=== PATIENT | female | born 1935 | race Caucasian/White ===

== ENCOUNTER 2017-03-10 10:23 | Day surgery (SDC) | payer MEDICARE ==
[2017-03-10] VITALS (8 sets, daily range): BP systolic 115–141; BP diastolic 39–87; PULSE 81–99; RESP 15–21; O2SAT 96–100
[~2017-03-10] VITALS: Ht 152.4 cm; Wt 72.1 kg
[2017-03-10] MEDS: Lactated Ringer's 1,000 ML IV SCH ×3 (05:00→13:53)
[2017-03-10] MEDS: CeFAZolin Inj 2 GM in IV Premix 1 EACH IV SCH ×2 (06:00→13:58)
[2017-03-10] MEDS: Phenazopyridine 97.5 mg Tablet PO SCH ×2 (06:00→13:07)
[~2017-03-10 10:23] MED LIST: AMLO5TAB2 PO; BETA15OI2 TOP; CLOT15CR5 TOPICAL; FLUC150T3 PO; FLUT9.9S NS; FURO-129 PO; LISI40TA PO; POTA10TA38 PO; PREC VAGINAL
[2017-03-10] MEDS ORDERED: Dexamethasone 4 mg/mL Inj ONE (10:24)
[2017-03-10] MEDS ORDERED: fentaNYL-PF 50 mCg/mL 2 mL Inj ONE (10:24)
[2017-03-10] MEDS ORDERED: Propofol 10,000 mCg/mL 20 mL Inj ONE (10:24)
[2017-03-10] MEDS ORDERED: Rocuronium 10 mg/mL 5 mL Inj ONE (10:24)
[2017-03-10] MEDS ORDERED: Ondansetron 2 mg/mL 2 mL Inj ONE (10:24)
--- NOTE | 2017-03-10 13:30 | PCM.HPANE ---
Patient Data Date of Service: March 10, 2017 Surgeon Admitting Provider: Attending Provider:Bismark Cutler MD Primary Care Physician:Najma Spaulding Other Provider:Sandra Jimenez Anesthesia Reason for Visit Cystocele, Rectocele, Vault Prolapse, Erosion Of I Ht/WT & BMI Height (Feet): 5 Height (Inches): 0.00 Weight (Kilograms): 67.300 Body Mass Index 29.00 Allergies Coded Allergies: hydrocodone (Verified Adverse Reaction, Severe, "violently ill" ( DOES TOLERATE ACETAMINOPHEN), 03/05/17) Past Anesthesia History Anesthesia History: Denies:: Anesthesia Reactions, Malignant Hyperthermia Diabetes History Hx Diabetes?: No MRSA MRSA: No Medications Hypertension Medication: Yes (LASIX,LISINOPRIL,AMLODIPINE) Home Meds Incl Beta Iain: No Reported Medications Estrogens Conjugated (Premarin)1 Gm Vagcream0.5 Gm VAGINAL WEEKLY #1 TUBE Ref 0 03/05/17 Potassium Chloride 10 Meq Tab.er.prt10 Meq PO DAILY 30 Days Ref 0 TAKE WITH FOOD 03/05/17 Lisinopril 40 Mg Gqqitu52 Mg PO DAILY 30 Days Ref 0 03/05/17 Fluticasone Propionate (Flonase Allergy Relief)50 Mcg/Actuation Alvord.susp9.9 Ml NS DAILY 03/05/17 Amlodipine 5 Mg Tablet5 Mg PO EVERY OTHER DAY Ref 0 03/05/17 Discontinued Reported Medications Furosemide (Lasix)20 Mg Uatnmq47 Mg PO DAILY 30 Days Ref 0 03/05/17 Clotrimazole/Betamethasone Dip (Lotrisone)15 Gm Cream..g.1 Applic TOPICAL DIRECTED PRN SKIN 03/05/17 Fluconazole 150 Mg [id number] Mg PO ONCE #1 TABLET Ref 0 03/05/17 Betamethasone Valerate (Betamethasone Valerate 0.1% Ointment)15 Gm Oint...g.1 Appl TOP BID #1 TUBE Ref 0 03/05/17 History History of ENT Problems?: No HEENT History: Denies:: Cataracts (HX OF RETINAL DETACHMENT) Denture Type: None Teeth Condition: No Teeth Other HEENT Pertinent History: S/P TONSILLECTOMY, DENTAL EXTRACTIONS Hx of Heart Problems?: Yes Cardiovascular History: Positive for:: Edema (R/T AMLODIPINE) Hypertension (HYPERLIPIDEMIA) Denies:: Heart Murmur Hx of Respiratory Problem?: Yes Respiratory History: Denies:: Use of C-PAP Machine (SUSPECT TALISHA+ (ACCORDING TO PT) NO CPAP) Hx Neurologic Problems?: Yes Hx of GI Problems?: Yes Other GI Pertinent History: C/OF DIARRHEA Hx of Problems?: Yes Genitourinary History: Positive for:: Urinary Tract Infection (HAS SL HEMATURIA ?UTI C&S PENDING) Female Hx: Denies:: Currently Skin History: Denies:: History Skin Disorders? Pressure Ulcers Hx Musculoskeletal Problems?: No Hx of Psycho/Social Problems?: No Hx Surgeries?: Yes (TONSILLECTOMY,TEETH EXTRACTED,VAGINAL SUSPENSION) Hx Any Other Health Problems?: Yes Other History: Positive for:: Hospitalization Denies:: Cancer Endocrine Disease Thyroid Disease History Blood Transfusions: Positive for:: Accept Blood Products? Blood Transfusions Denies:: Blood Transfuse Reaction Hx Diabetes: No Hx Alcohol Use: NoHx Substance Use: NoHave You Smoked inLast 12 mo: No Stop/Bang S-Snoring: Do You Snore Loudly: No T-Tired: feel tired, fatigued: Yes O-Obsered: Observed not breath: No P-Blood Pressure: treated: Yes B- Body Mass Index > 35 kg/m2: No N- Neck Large Circumference: No G- Gender Male: No TALISHA Risk Assessment: Low Risk, <3 Yes Risk Assessment Category Category 1A: Patient has history of documented sleep apnea, and HAS NOT received any narcotic, sedative or anesthesia administration during this stay. Category 1B: Patient has history of documented sleep apnea, and HAS received any narcotic , sedative or anesthesia administration during this stay Category 2: Patient has SUSPECTED Obstructive Sleep Apnea, and HAS received any narcotic , sedative or anesthesia administration during this stay. Category 3: Patient has SUSPECTED Obstructive Sleep Apnea and HAS NOT received narcotic, sedative or anesthesia administration during this stay. Category 4: Outpatient in Procedural Areas with known sleep apnea or who screen positive for High Risk via the STOP/BANG questionnaire. Exam Exam Vital Signs Vital Signs Date Time Temp Pulse Resp B/P Pulse Ox O2 Delivery O2 Flow Rate FiO2 03/10/17 10:49 36.1 99 18 141/70 96 Room Air General Appearance: Alert, Oriented X3, Cooperative, No Acute Distress HEENT/AIRWAY: MP 2 Lungs: Clear to Auscultation, Normal Air Movement Heart: Exam Unremarkable, Regular Rate/Rhythm, No Murmurs/Rubs/Gallops Meds/Labs/Diagnostics Admission Meds Current Medications Phenazopyridine HCl 2 tab 2 tab PREOP PO Last administered on 03/10/17 13:07; Start 03/10/17 at 06:00; Stop 03/10/17 at 17:00 Lactated Ringer's (Lr) 1,000 ml @ 120 mls/hr Q8H20M IV Last administered on 11:10; Start 03/10/17 at 05:00; Stop 03/10/17 at 13:19; Status DC Plan Impression Patient chart reviewed, patient interviewed and anesthestic plan with risks, benefits, and alternatives discussed, and informed consent obtained. NPO per Anesth. Guidelines: Yes ASA Physical Status: ASA2 Mod Systemic Disease Anesthetic Plan: GA Bene/Risks/Altern/Consents: Yes HP Complete Prior to Induction: Yes Yemi Bruce MD March 10, 2017 13:30
[2017-03-10] MEDS ORDERED: Lidocaine 1%-Epi 1:100,000 20 mL Inj INFILTRATE ONE (14:30)
[2017-03-10] MEDS ORDERED: hydrALAZINE 20 mg/mL Inj IVPUSH PRN (14:40)
[2017-03-10] MEDS ORDERED: MetoCLOpramide 5 mg/mL 2 mL Inj IVPUSH PRN ×2 (14:40→17:40)
[2017-03-10] MEDS ORDERED: EPHEDrine Sulfate 50 mg/mL Inj IVPUSH PRN (14:40)
[2017-03-10] MEDS ORDERED: HYDROmorphone 1 mg/mL Inj IVPUSH PRN (14:40)
[2017-03-10] MEDS ORDERED: Phenylephrine 10,000 mCg/mL Inj IVPUSH PRN (14:40)
[2017-03-10] MEDS ORDERED: Lactated Ringer's 1,000 ML IV SCH (14:40)
[2017-03-10] MEDS ORDERED: Lactated Ringer's 500 ML IV PRN (14:40)
[2017-03-10] MEDS ORDERED: fentaNYL-PF 50 mCg/mL 2 mL Inj IVPUSH PRN (14:40)
[2017-03-10] MEDS ORDERED: Atropine 0.4 mg/mL Inj IVPUSH PRN (14:40)
[2017-03-10] MEDS ORDERED: Ondansetron 2 mg/mL 2 mL Inj IVPUSH PRN ×2 (14:40→17:40)
[2017-03-10] MEDS ORDERED: Labetalol 5 mg/mL 4 mL Inj IV PRN (14:40)
[2017-03-10] MEDS ORDERED: Gentamicin 40 mg/mL 2 mL Inj IRRIGATION ONE (15:00)
--- NOTE | 2017-03-10 17:32 | PCM.ANEP1 ---
Post Anesthesia PACU Phase 1 Assessment Date of Service: March 10, 2017 Vital Signs 36.1 123/56 87 13 98% FM Anesthetic Administered: GA Level of Alertness: Sleeping, hard to arouse WILLSON's with Equal Strength: Yes Pain: No Nausea or Vomiting: No CV Function and Hydration: Yes Airway Device: Oxygen Delivery: Simple Mask Lungs: Clear to Auscultation, Normal Air Movement PACU Phase 2 Assessment Complications: No Follow up Care: No Patient Instructions Provided: Yes Yemi Bruce MD March 10, 2017 17:32
[2017-03-10] MEDS ORDERED: oxyCODONE-Acetamin 5-325 mg Tablet PO PRN (17:40)
[2017-03-10] MEDS ORDERED: diphenhydrAMINE 25 mg Capsule PO PRN (17:40)
[2017-03-10] MEDS ORDERED: Acetaminophen IV 1,000 MG in IV Premix 1 EACH IV PRN (17:40)
[2017-03-10] MEDS ORDERED: Alum-Mag Hydrox-Simeth 30 mL Suspension PO PRN (17:40)
--- NOTE | 2017-03-10 18:45 | NUR ---
Postop Pt comes from PACU. slid over to bed from [facility]. Alert and oriented to self at this time. Vidal patent and draining to gravity glenn urine. 2-3L NC. IV Right FA in use.. Pt c/o pain at this time but unable to rate with number. Care continues. Report given to oncoming nurse; oncoming nurse aware of pain.
[2017-03-10] MEDS: 0.9% Sodium Chloride 1,000 ML IV SCH (19:39)
[2017-03-10] MEDS ORDERED: Fluticasone 0.05% 15 Spray/2 Gm 16 Gm Nasal Spray NASAL PRN (20:30)
[2017-03-10] MEDS: Senna-Docusate 8.6-50 mg Tablet PO SCH (20:30)
[2017-03-10] MEDS: Ketorolac 15 mg/mL Inj IVPUSH PRN (21:25)
[2017-03-10 21:47] LABS: APPEARANCE,URINE CLEAR (CLEAR,HAZY); COLOR,URINE YELLOW (YELLOW); OCCULT BLOOD,URINE TRACE (NEGATIVE)
[2017-03-10 21:48] LABS: UROBILINOGEN,URINE NORMAL (NORMAL)
--- NOTE | 2017-03-10 23:50 | PCM.SURGOP ---
Surgical Operative Report Date of Service: March 10, 2017 Pre Operative Diagnosis 1. POPQ stage 2 anterior, posterior and apical vaginal prolapse 2. Erosion of vaginal foreign body 3. Vulvar leukoplakia Post Operative Diagnosis 1. POPQ stage 2 cystocele/vaginal vault prolapse/enterocele 2. POPQ stage 1-2 rectocele (completely reduced after vault suspension) 3. 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 anterior repair with Xenform biologic graft augmentation, 2. high uterosacral ligament vaginal vault suspension, cystoscopy and enterocele repair\ 3. excision of eroded vaginal foreign body 4. vulvar/labial and perineal biopsy of vulvar leukoplakia. Surgeon and Aircraft Layout Worker: Surgeon: Bismark Cutler MD Assistants: Glen Resendez MD Indication for Procedure Her assessment to date includes: 1. Cystocele, midline N81.11 (618.01): 2. Rectocele N81.6 (618.04): 3. 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 Erosion of implanted vaginal foreign body 5. Vulvar leukoplakia The patient has had a history of 1) 05/06/2006 A and P repair with SPARC sling and correction of enterocele for complete vaginal prolapse (Dr. Obed Castle and Dr. Aaron Cohn) and 2) 1996 Hysterectomy for fibroids. She complains of recurrent prolapse. The patient is not interested in a pessary. The patient is a candidate for surgical prolapse management in the form of anterior and posterior repair with possible biologic graft augmentation, high uterosacral ligament vaginal vault suspension and enterocele repair. We can excise the eroded vaginal foreign body. In addition, we could perform a vulvar biopsy of the irritated vulvar leukoplakia. She has obtained medical clearance prior to surgery (Dr. Najma Spaulding is her GP). The patient signed the consent form. She agreed with the risks, benefits, and alternatives to surgery. The risks included but not limited to recurrence or persistence of prolapse, recurrence of persistence of incontinence, development of voiding dysfunction, development of urinary urgency, urgency incontinence, frequency, and need for intermittent self-catheterization or prolonged indwelling catheterization, injury to other organs including bladder, bowel, nerves or blood vessels. Need for blood transfusion, need for temporary colostomy or urinary stenting. Development of vaginal scarring, dyspareunia, defecatory dysfunction, recurring pain, hematoma formation, urinary tract infection, cellulitis, necrotizing fascitis, and medical risks including myocardial infarction, stroke or VTE. She also understood the FDA warnings associated with the use of vaginal graft (dysparunia, vaginal erosion, erosion into bowel/bladder/urethra, requiring further surgery to correct these complications). The patient understood the risks and benefits and consented to surgery.. Findings: see dictation Procedure Details SURGICAL TECHNIQUE: The patient was brought to the operating room and was placed under general anesthesia. She was prepped and draped in the normal fashion for vaginal surgery with the legs in Yellofin stirrups. Also, her hips were allowed to deflex periodically during the case to avoid any pressure on the nerves and lower limb joints. She was given a dose of IV Keflex. She received 200 mg oral pyridium 30 min prior to surgery. 1. Biopsy of vulva/labia and perineum. Areas of leukoplakia were noted along the perineum (inferior to the posterior fourchette) and adjacent to the labia minor. Two areas with the most intense leukoplakia were noted and chosen to be biopsied: the perineum at the 6 oclock position and the skin at and beside the right labia minora at the 11 oclock position. The areas were infiltrated with 0.5% lidocaine with epinephrine. A 6 mm circular biopsy knife was used to biopsy the two areas, which were sent to pathology. Hemostasis was achieved using cautery. The skin edges were approximated using Dermabond topical skin adhesive. 2. Excision of vaginal foreign body. A foreign body was noted to be eroding through the vagina along the area of the bladder neck. A small incision was made with a scalpel to explore the area. This allowed for exposure of several strands of semi-absorbable suture which were excised at its base. The largest fragment was sent to pathology. 3. Anterior colporrhaphy with Xenform graft augmentation: Lidocaine 0.5% with 1 /[id number] epinephrine was infiltrated along the anterior vaginal wall mucosa. A midline vertical incision was made through the anterior vaginal wall. The vaginal wall was dissected off the underlying pubocervical and pubovesical fascia. The dissection was extended laterally beyond the ischiopubic rami. It was noted that the pubocervical and pubovesical fascial tissues were deficient. 4. High uterosacral ligament vaginal vault suspension, cystoscopy and enterocele repair: The rest of the anterior repair would be performed later. We directed attention to the apex where we suspected an enterocele was present. By using a gloved finger in the rectum, the bladder was dissected off the rectum and the retroperitoneal space was entered. However, there was no clear entry noted into the enterocele sac. Therefore, we decided to proceed with a retroperitoneal high uterosacral ligament vaginal vault suspension. The bladder and rectum/bowels were retracted with Brisky and right-angle retractors and a pair of Allis clamps were placed along the distal uterosacral ligaments to allow for digital palpation/identification. A pair of 0 Vicryl sutures were passed retroperitoneally around the uterosacral ligaments of the level of the ischial spines bilaterally, totalling 4. Cystoscopy was performed while the vault sutures were placed under tension. Multiple incidental bladder diverticulae and trabeculations were noted. Brisk spillage of pyridium-stained urine was noted at the left, but not the right ureteric orifice. Therefore the right uterosacral ligament sutures were excised. This resulted in creating a small window through the peritoneum, which would then allow us to perform an interperitoneal vault suspension. The left vault suspension sutures were removed as they were noted to be placed too superficially into the tissues. A peritoneal window was enlargened with sharp dissection. Five mini laparotomy sponges were packed in the pelvis to retract the bowel upwards. A pair of Allis clamps were placed along the intraperitoneal portions of the vagina at the 5 and 7 o'clock positions. Tension along these Allis clamps allowed for identification of the uterosacral ligaments bilaterally. Also the ureters were palpated carefully to identify them so they can be avoided. A pair of 0 Vicryl sutures were passed intraperitoneally around the uterosacral ligaments of the level of the ischial spines bilaterally, totalling 4. Cystoscopy was performed while the vault sutures were placed under tension. Brisk spillage of pyridium-stained urine was noted at the ureteric orifices bilaterally. The moderate enterocele was obliterated using two 3-0 prolene sutures in a transverse fashion along the posterior cul-de-sac. A gloved finger in the rectum was used to avoid penetrating the rectal mucosa. The remainder of the anterior repair was then completed as follows: The cystocele was plicated in 2 layers, the first layer with 2-0 Vicryl suture in interrupted fashion, the second layer with 2-0 Tycron suture in an interrupted fashion. A trapezoidal piece of Xenform graft was then incorporated atop the plicated area far laterally. The graft was secured far laterally into the obturator internus membrane. At the level of the bladder neck, an upside down triangular piece of graft was excised so that there was no excessive-support along the level of the bladder neck. Apically, the graft was passed through the proximal uterosacral ligament sutures. A mild amount of anterior vaginal mucosa was required to be excised. The high uterosacral ligament vault suspension sutures were passed through the planned apex of the vagina. The vagina was then reapproximated using 3-0 Vicryl suture in a running locked fashion. The high uterosacral ligament vaginal vault suspension sutures were tied and this elevated the apex of the vagina high up into the hollow of the sacrum. An EUA revealed that the POPQ stage 1-2 posterior vaginal prolapse/rectocele was completely reduced after vault suspension; therefore a posterior repair was not required. The estimated blood loss was approximately 100 mL. 800 mL of IV Lactated Ringer 's was given. All sponges and instruments were accounted for. The patient was taken to the recovery room in stable condition. Complications There were no periprocedural complications identified. Surgical Specimen Removed: Yes Specimen sent to Pathology: Yes Surgical Specimen description: vulvar/skin biopsies x 2 eroded vaginal foreign body/stitch Anesthetic Plan: GA Grafts, Implants: Implants-See Implant Record Output, Estimated Blood Loss: 100 (ml EBL) Blood Administration during scott: No Drains: None Catheters: Urethral 2 Way Vidal Post Operative Plan overnight stay in bed as outpatient as she requires a voiding trial in the am copies to: Glen Resendez MD; Bismark Cutler MD; Najma Spaulding William Andre Z MD March 10, 2017 23:50
[2017-03-11 00:01] VITALS: BP 132/75; PULSE 92; RESP 20; O2SAT 98
--- NOTE | 2017-03-11 01:38 | NUR ---
PAIN/ACTIVITY/NAUSEA: Pt. resting in bed after surgery. Reports abdominal pain and nausea. Medicated with Zofran 4 mg IV and 15 mg of IV Toradol, later on IV Tylenol, pain resolved. Was able to sit on the edge of her bed and angled, stated it helps her back pain, reports chronic back pain. Stated she felt better after OOB and dangling. Vidal with pink urine, no blood clots seen. A & O, VSS. On going care.
[2017-03-11] MEDS: 0.9% Sodium Chloride 1,000 ML IV SCH ×2 (04:01→13:11)
[2017-03-11 04:30] VITALS: BP 119/62; PULSE 82; RESP 18; O2SAT 97
[2017-03-11] MEDS: Ketorolac 15 mg/mL Inj IVPUSH PRN (04:44)
[2017-03-11 05:26] LABS: BASOPHILS % (AUTO) 0.1 % (0-3); EOSINOPHILS % (AUTO) 0 % (0-5); MONOCYTES % (AUTO) 6.1 % (4-12); Mean Corpuscular Hemoglobin 29.2 pg (27.0-35.0); NEUTROPHILS % (AUTO) 88.4 % (40-74); Platelet Count 299 bil/L (150-400)
[2017-03-11 05:39] VITALS: PULSE 67
[2017-03-11] MEDS ORDERED: Heparin 5,000 Unit/mL Inj SUBQ SCH (08:30)
[2017-03-11 09:00] VITALS: BP 138/74; PULSE 91
[2017-03-11] MEDS: Senna-Docusate 8.6-50 mg Tablet PO SCH (09:19)
--- NOTE | 2017-03-11 12:17 | PCM.DIGYN ---
Surgical Discharge Instruction Dates of Hospitalization Date of Hospital Admission 03/10/17 outpatient in bed Providers Admitting Physician: Primary Care Physician: Najma Spaulding Attending Physician: Bismark Cutler MD Diagnosis at Time of Discharge Diagnosis at time of discharge 1. POPQ stage 2 cystocele/vaginal vault prolapse/enterocele 2. POPQ stage 1-2 rectocele (completely reduced after vault suspension) 3. 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 POPQ stage 2 cystocele/vaginal vault prolapse/enterocele 2. POPQ stage 1-2 rectocele (completely reduced after vault suspension) 3. 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 Cutler) Call your provider for: Fever, Chills, Shortness of breath, Vomitting, Drainage at incision, Heavy vaginal bleeding, Wound redness, Increasing pain Bismark Cutler MD March 11, 2017 12:17
--- NOTE | 2017-03-11 14:25 | NUR ---
DC Pt given discharge scripts and given instructions on pompa care. Pt DC'd with cath in place with plug. Pt was wheeled out by CAROL with daughter to take her home. Wheeled out @ 1965
--- NOTE | 2017-03-11 15:04 | PCM.PNSURG ---
Subjective Date of Service: March 11, 2017 Date of Service: March 11, 2017 Visit Information: Reason for Visit Cystocele, Rectocele, Vault Prolapse, Erosion Of I Surgery/Surgery Date Post-Op Day # 1 Subjective: AVSS pt doing well OR explained ambulatory pain well controlled with po analgesia failed voiding trial tolerating solids Postop General: No Complaints Gastrointestinal: Good Appetite Pain Management: PO Postop Activity: Ambulating Independently Objective Vital Sign- Last 8 Hours Date Time Temp Pulse Resp B/P Pulse Ox O2 Delivery O2 Flow Rate FiO2 03/11/17 09:00 91 138/74 Intake and Output- Last 8 Hour 03/11/17 Cumulative From/Thru 07:00 03/05/17 14:06 - 03/11/17 06:27 Intake Total 1479 ml 2329 ml Output Total 1150 ml 1550 ml Balance 329 ml 779 ml Intake Oral 100 ml 100 ml IV Total 1379 ml 2229 ml Output Urine Total 1050 ml 1350 ml Estimated Blood Loss 100 ml 200 ml # Bowel Movements 0 0 General: Alert, Oriented X3, Cooperative Lungs: Clear to Auscultation Abdomen: Benign Catheters: Urethral 2 Way Vidal Result Diagram: 03/11/17 0448 03/10/17 1933 Assessment & Plan Impression stable for discharge POD#1 Problems: Plan f/u in 1 wk for a voiding trial and in [address] Cutler D/C home today VTE Prophylaxis: Sub-Q Heparin (Unfractionated) Resuscitation Status: CPR: Attempt Resuscitation copies to: Bismark Cutler MD, William Andre Z MD March 11, 2017 15:04
--- NOTE | 2017-03-12 10:06 | PATH ---
SURGICAL PATHOLOGY Attending Physician:Bismark Cutler, CASE STATUS: Signed Out PATIENT NAME: ROBINSON LANGSTON PID: [id number] : 1935 DATE COLLECTED:03/10/2017 00:00 SPECIMEN: 1: Labium, Biopsy 2: Perineum, biopsy 3: Foreign Body CLINICAL HISTORY: VULVAR/PERINEAL LEUKAPLAKIA, STITCH EROSION THROUGH VAGINA 1). RIGHT LABIA BIOPSY @ 11:00 2). PERINEUM BIOPSY @ 6:00 3). 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 Negative for dysplasia and malignancy. 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 Negative for dysplasia and malignancy. 3.EROSION OF FOREIGN BODY THROUGH VAGINA: SEGMENT OF PLASTIC TUBING IDENTIFIED (GROSS DIAGNOSIS ONLY). ICD10 code N76.3 NOTE: The inflammatory changes in the labia and perineum biopsy are suggestive of chronic irritation. Typical features of lichen sclerosis are not present. GROSS DESCRIPTION: The specimens are received in formalin, labeled with the patient's name, and sublabeled as the following: (1) right labia@11:00; (2) perineum@06:00; (3) erosion of foreign body. (1) The specimen consists of an unoriented piece of blue stained tissue (0.6 x 0.5 x 0.3 cm). The surface is smooth and flat. The cut surface is partially firm and semitranslucent. No nodules, masses or lesions are identified. Ink code: black-resection margin. Section code: (1A) tissue, trisected. Specimen entirely submitted. (2) The specimen consists of an unoriented piece of blue stained rubbery glistening tissue (0.7 x 0.5 x 0.4 cm). No nodules, masses or lesions are identified. Section code: (2A) tissue, trisected. Specimen entirely submitted. (3) The specimen consists of a curved tubular piece of green plastic (length-1.2 cm, diameter-0.1 cm). The specimen is not suitable for histological analysis therefore no sections are submitted. 03/11/17 JM MICRO DESCRIPTION: See diagnosis. ICD-9 CODES: CPT CODES: 1: 08203 2: 56595 3: 20135 Electronically Signed Out Betsy Gill MD [facility] Pathology [facility] [address], [place] [address] Technical component performed at [facility], [facility] [address], [place], [address]
== END 2017-03-11 14:24 | disposition home or self-care (01) ==
LOC: SAS 10:23 → OSC 19:00 → SAS 03-11 14:24
PROVIDERS: ATTEND Obstetrics & Gynecology
DX: N99.3 Prolapse of vaginal vault after hysterectomy (principal); N81.11 Cystocele, midline; N81.6 Rectocele; N81.5 Vaginal enterocele; N76.3 Subacute and chronic vulvitis; T83.711A Erosion of implanted vaginal mesh to surrounding organ or tissue, initial encounter; T81.508A Unspecified complication of foreign body accidentally left in body following other procedure, initial encounter; G89.18 Other acute postprocedural pain; N39.41 Urge incontinence; R39.14 Feeling of incomplete bladder emptying; R31.21 Asymptomatic microscopic hematuria; I10 Essential (primary) hypertension; E78.5 Hyperlipidemia, unspecified; R73.09 Other abnormal glucose; M81.0 Age-related osteoporosis without current pathological fracture; E83.52 Hypercalcemia; Z79.890 Hormone replacement therapy; Z87.891 Personal history of nicotine dependence; Z87.440 Personal history of urinary (tract) infections
CPT/HCPCS: 36415; 56605; 56606; 57240; 57267; 57283; 80048; 81000; 85025; 86850; 88300; 88305; 96374; C1763; J0131; J0690; J1100; J1580; J1644; J1885; J2405; J3010; J7030; J7120